=== PATIENT | female | born 1935 | race Caucasian/White ===

== ENCOUNTER 2017-07-24 13:29 | Observation (INO) | payer MEDICARE, BC ==
[~2017-07-24] VITALS: Ht 162.6 cm; Wt 71.3 kg
--- NOTE | ~2017-07-24 | HEMODYNAMI ---
PATIENT:ZAIN MITCHELL MEDICAL RECORD: [id number] : 31 LOCATION:[facility] D.2115 ADMISSION DATE: 07/24/17 Generatedon:07/25/201714:04 Patient name: ZAIN MITCHELL Patient #: [id number] SSN: : 1935 Date of study: 07/25/2017 Page: Of Hemodynamic Procedure Report Patient Data Patient Demographics Procedure consent was obtained First Name: ZAIN Gender: Female Last Name: PAULA : 1935 [facility] Initial: Chito Age: 82 year(s) Patient #: [id number] Race: Unknown Additional ID: [id number] Contact details Address: [place] [address] State: [place] City: [place] Zip code: [address] Past Medical History Allergies Allergen Reaction Date Comments Reported Morphine 07/25/2017 Admission Admission Data Admission Date: 07/24/2017 Admission Time: 17:08 Room #: 2115 Procedure Procedure Types Cath Procedure Diagnostic Procedure C [facility] w/Coronaries Miscellaneous Procedures Moderate Sedation up to 15 minutes Procedure Description Procedure Date Procedure Date: 07/25/2017 Procedure Start Time: 13:47 Procedure End Time: 14:03 Procedure Staff Name Function Jonas Salcedo MD Performing Physician Sol Espinoza RT Monitor Cassie Brady RT Scrub Shahid Segura RN Nurse Procedure Data Cath Procedure Fluoroscopy Diagnostic fluoroscopy Total fluoroscopy Time: 3.2 time: 3.2 min min Diagnostic fluoroscopy Total fluoroscopy dose: 190 dose: 190 mGy mGy Contrast Material Contrast Material Type Amount (ml) Isovue 300 43 Entry Location Entry Primary Successful Side Size Upsize Upsize Entry Closure Succes sful Closure Location (Fr) 1 (Fr) 2 (Fr) Remarks Device Remarks Femoral Right 5 Fr Exoseal artery Estimated blood loss: 5 ml Diagnostic catheters Device Type Used For End Catheter Placement Cordis 5Fr JL 4.0 Left Coronary Catheter (MP) Angiography Cordis 5Fr 3DRC Catheter Right Coronary (MP) Angiography Cordis 5Fr Pigtail LV Angiography Catheter (MP) Procedure Complications No complications Procedure Medications Medication Administration Route Dosage Oxygen NC 2 l/min Lidocaine 2% added to field 20 Heparin Flush Bag added to field 2 bags (1000units/500ml NS) Versed I.V. 0.5 mg Fentanyl I.V. 25 mcg Versed I.V. 0.5 mg Fentanyl I.V. 25 mcg Hemodynamics Rest Heart Rate: 52 (bpm) Snapshots Pre Cath Intra NCS Post Cath Vital Signs Time Heart Resp SPO2 etCO2 NIBP (mmHg) Rhythm Pain Sedation Rate (ipm) (%) (mmHg) Status Level (bpm) 13:40:01 58 17 94 6.7 124/65(100) SB 0 (11) 10(A) , No pain 13:45:21 48 19 93 0 110/56(82) SB 0 (11) 10(A) , No pain 13:50:40 50 18 94 0 113/55(91) SB 0 (11) 9(A) , No pain 13:55:58 48 24 98 1.4 121/57(94) SB 0 (11) 9(A) , No pain 14:01:21 47 18 96 11.1 124/55(94) SB 0 (11) 10(A) , No pain Medications Time Medication Route Dose Verified Delivered Reason Notes Effe ctiveness by by 13:41:21 Oxygen NC 2 Jonas Buffie used for l/min [facility] Ricardo Segura RN procedure 13:41:29 Lidocaine 2% added 20ml Jonas Buffie for local to vial [facility]. Ricardo Segura RN anesthetic field 13:41:37 Heparin Flush added 2 Jonas Buffie used for Bag to bags [facility] Ricardo Segura RN procedure (1000units/500ml field ABDUL NS) 13:45:49 Versed I.V. 0.5 [address] mg [facility] Ricardo Segura RN sedation 13:45:55 Fentanyl I.V. [address] m[address] [facility] Ricardo Segura RN sedation 13:53:04 Versed I.V. 0.5 Jonas [address] for mg [facility] Ricardo Segura RN sedation 13:53:08 Fentanyl I.V. [address] mcg [facility] Ricardo Segura RN sedation Procedure Log Time Note 13:15:39 Shahid Segura RN sent for patient. Start room use. 13:15:40 Time tracking: Regular hours 13:15:44 Plan of Care:Hemodynamics will remain stable., Cardiac rhythm will remain stable., Comfort level will be maintained., Respiratory function will remain adequate., Patient/ family verbilizes understanding of procedure., Procedure tolerated without complication., Recovers from procedure without complications.. 13:30:29 Patient received from PCU to CCL 1 Alert and oriented. Tansferred to table in Supine position. 13:30:31 Warm blankets applied, and luís hugger turned on for patient comfort. 13:30:31 Correct patient and procedure confirmed by team. 13:30:32 Signed procedure consent form obtained from patient. 13:30:34 ECG and BP/O2 sat monitors applied to patient. 13:30:36 Full Disclosure recording started 13:39:07 Vital chart was started 13:39:08 Baseline sample Acquired. 13:39:11 Rhythm: sinus bradycardia 13:39:23 H&P Date Dictated: 07/25/2017 Within 30 days and on chart.. 13:39:25 Pre-procedure instructions explained to patient. 13:39:26 Pre-op teaching completed and patient verbalized understanding. 13:39:27 Family in patients room. 13:39:29 Patient NPO since Midnight. 13:41:21 Oxygen 2 l/min NC was administered by Shahid Segura RN; used for procedure; 13:41:29 Lidocaine 2% 20ml vial added to field was administered by Shahid Segura RN; for local anesthetic; 13:41:30 Patient allergic to Morphine 13:41:33 Is the patient allergic to Iodine/contrast media? No. 13:41:35 Is patient on blood thinner?No 13:41:37 Heparin Flush Bag (1000units/500ml NS) 2 bags added to field was administered by Shahid Segura RN; used for procedure; 13:41:38 Patient diabetic? No. 13:41:42 Previous problem with sedation/anesthesia? No ? 13:41:45 Snore? Yes 13:41:47 Sleep apnea? No 13:41:48 Deviated septum? No 13:41:49 Opens mouth fully? Yes 13:41:49 Sticks out tongue? Yes 13:41:53 Airway obstruction? No ? 13:41:58 Dentures? Yes In 13:42:02 Pre procedure: right dorsailis pedis pulse 2+ Normal; easily identifiable; not easily obliterated 13:42:50 Patient pain scale 0/10 ?. 13:42:58 IV patent on arrival in left antecubital with 0.9% NaCl at [facility]. 13:43:13 Lab results completed and on chart. 13:43:17 Right groin area was prepped with chlora-prep and draped in sterile fashion 13:43:18 Alarms reviewed by R. N. 13:43:19 Sharps counted by scrub and verified by R.N. 13:43:32 Use device set Femoral Dx 13:43:33 Acist Syringe opened to sterile field. 13:43:34 Bag Decanter opened to sterile field. 13:43:34 Medline Cath Pack opened to sterile field. 13:43:35 Terumo 5Fr B[place]well Sheath opened to sterile field. 13:43:35 St Reuben 260cm J .035 wire opened to sterile field. 13:43:36 Acist Hand Control opened to sterile field. 13:43:36 Acist Manifold opened to sterile field. 13:43:36 Diagnostic Infinity 5Fr Multipack catheter opened to sterile field. 13:43:37 Tegaderm 4 x 4 opened to sterile field. 13:44:53 Final Timeout: patient, procedure, and site verified with staff and physician. All members of the team are in agreement. 13:44:55 Right groin site verified by team. 13:44:57 Physical assessment completed. ASA score P 2 - A patient with mild systemic disease as per Jonas Salcedo MD. 13:45:01 Sedation plan: IV Moderate Sedation Medication:Versed, Fentanyl 13:45:49 Versed 0.5 mg I.V. was administered by Shahid Segura RN; for sedation; 13:45:55 Fentanyl 25 mcg I.V. was administered by Shahid Segura RN; for sedation; 13:46:47 Zero performed for pressure channel P1 13:46:54 Zero performed for pressure channel P1 13:46:57 Zero performed for pressure channel P1 13:46:59 Zero performed for pressure channel P1 13:47:04 Zero performed for pressure channel P1 13:47:07 Zero performed for pressure channel P1 13:47:21 Procedure started. 13:47:24 Local anesthetic to right femoral artery with Lidocaine 2% by Jonas Salcedo MD.INITIAL ACCESS ONLY 13:47:33 A 5 Fr sheath was inserted into the Right Femoral artery 13:50:52 PERCUTANEOUS ENTRY 19GA needle opened to sterile field. 13:50:53 PERCUTANEOUS ENTRY 19GA needle opened to sterile field. 13:53:04 Versed 0.5 mg I.V. was administered by Shahid Segura RN; for sedation; 13:53:08 Fentanyl 25 mcg I.V. was administered by Shahid Segura RN; for sedation; 13:55:11 A Cordis 5Fr JL 4.0 Catheter (MP) was advanced over the wire and used for Left Coronary Angiography. 13:55:12 Catheter removed. 13:55:20 A Cordis 5Fr 3DRC Catheter (MP) was advanced over the wire and used for Right Coronary Angiography. 13:55:54 Catheter removed. 13:56:51 A Cordis 5Fr Pigtail Catheter (MP) was advanced over the wire and used for LV Angiography.removed, unable to cross valve. 13:59:49 Sheath removed intact; hemostasis achieved with Exoseal to the Right Femoral artery. 13:59:54 Procedure ended.(Physican Out) 14:00:04 Fluoroscopy time 03.20 minutes. 14:00:08 Fluoroscopy dose: 190 mGy 14:00:08 Flurop Dose total: 190 14:00:12 Contrast amount:Isovue 300 43ml. 14:00:14 Sharps counted by scrub and verified by R.N. 14:00:15 Insertion/operative site no bleeding no hematoma. 14:00:20 Post-op/insertion site Right Femoral artery dressed using a 4 x 4 and Tegaderm. 14:00:23 Post right femoral artery:stable, clean and dry 14:00:25 Post Procedure Pulses reassessed and unchanged 14:00:29 Post-procedure physical assessment completed. ASA score P 2 - A patient with mild systemic disease as per Jonas Salcedo MD. 14:00:34 Post procedure rhythm: unchanged. 14:00:37 Estimated blood loss: 5 ml 14:00:38 Post procedure instruction explained to patient.Patient verbalizes understanding. 14:00:39 Patient needs reinforcement of post procedure teaching. 14:00:50 Procedure type changed to Cath procedure, Diagnostic procedure, LHC, LHC w/Coronaries, Miscellaneous Procedures, Moderate Sedation up to 15 minutes 14:01:12 Procedure Complication : No complications 14:01:14 See physician's report for complete and final results. 14:01:32 Cordis 5Fr Exoseal opened to sterile field. 14:02:07 Procedure and supply charges have been captured, reviewed, submitted and are correct. 14:03:34 Vital chart was stopped 14:03:37 Report given to PCU. 14:03:40 Patient transfered to PCU with Bed. 14:03:51 Procedure ended. 14:03:51 Full Disclosure recording stopped 14:03:54 End room use (Document Last) Device Usage Item Name Manufacture Quantity Catalog Hospital Part Current Minimal Lot# / Number Charge Number Stock Stock Serial# Code Acist Acist 1 [id number] 681325 744145 20 Syringe [employer] Inc Bag Decanter Microtek 1 2002S 289227 34245 277644 5 Medical Inc. Medline Cath Cardinal 1 [id number] 885652 02869 221066 5 Pack Health Terumo 5Fr Terumo 1 [id number] 942667 361615 076964 [address] Reuben 1 230850 377352 283742 730162 30 260cm J .035 wire Acist Hand Acist 1 52203 297874 740452 684971 5 Control Medical [employer] Inc Acist Acist 1 57054 879156 913923 633507 5 Manifold Medical Systems Inc Diagnostic Cardinal 1 [id number] 738942 00019 870711 30 Infinity 5Fr Health Multipack catheter Tegaderm 4 x 3M 1 1626W 828448 298399 278737 5 4 PERCUTANEOUS [facility] 2 [id number] 449622 276144 5 ENTRY 19GA needle Cordis 5Fr Cardinal 1 [id number] 5 JL 4.0 Health Catheter (MP) Cordis 5Fr Cardinal 1 [id number] 5 3DRC Health Catheter (MP) Cordis 5Fr Cardinal 1 735759 5 Pigtail Health Catheter (MP) Cordis 5Fr Cardinal 1 EX500 833272 955893 616157 10 Exoseal Health Signature Audit [facility] Stage Time Signature Unsigned Intra-Procedure 07/25/2017 Sol 2:04:06 PM Counts RT(R) Signatures Monitor : Sol Signature : Counts RT Date : Time : [place] [address] [place] [address]
[~2017-07-24 13:29] MED LIST: BAYER CHEWABLE81 MG PO; BETAGAN 0.5% OPH5 ML EACH EYE; BUMEX 1 MG TAB1 MG PO; DULCOLAX5 MG PO; FLUTICASONE PRO16 GM NASAL; K-DUR20 MEQ PO; LUTEIN20 MG PO; MULTI-DAY VITAM1 TAB PO; NORVASC5 MG PO; PRILOSEC20 MG PO; PROMETHAZINE V180 ML PO; QUALAQUIN324 MG PO; REFRESH TEARS15 ML EACH EYE; TUMS500 MG PO; ULTRAM50 MG PO; ZOFRAN4 MG PO
[2017-07-24 14:13] LABS: ALBUMIN 3.7 g/dL (3.4-5.0); ALKALINE PHOSPHATASE 140 U/L (46-116); ALT (SGPT) 27 U/L (10-68); BILIRUBIN - TOTAL 0.53 mg/dL (0.2-1.3); CALC OSMOLALITY 290 mosm/kg (275-300); CALCIUM 9.4 mg/dL (8.5-10.1); CARBON DIOXIDE 30.9 mmol/L (21.0-32.0); CHLORIDE - SERUM 99 mmol/L (98-107); CREATININE - SERUM 0.9 mg/dL (0.6-1.3); GLUCOSE 95 mg/dL (74-106); PROTEIN - SERUM 8.1 g/dL (6.4-8.2); SODIUM 145 mmol/L (136-145); UREA NITROGEN 19 mg/dL (7-18); eGFR NON AFRICAN AMERICAN 63 mL/min (90-120)
[2017-07-24 14:24] LABS: CKMB 0.4 U/L (0.0-3.6); CREATINE KINASE 35 UL (21-215)
[2017-07-24 14:25] LABS: TROPONIN-I < 0.017 ng/mL (0.000-0.060)
[2017-07-24 14:35] LABS: BASOPHILS 0.1 % (0-2); EOSINOPHILS 3.9 % (0-7); HEMATOCRIT 48.3 % (36.0-48.0); HEMOGLOBIN 16.4 g/dL (12-16); IMMATURE GRANULOCYTES 0.1 % (0-5); LYMPHOCYTES 26.3 % (15-50); MCH 32.1 pg (26.0-34.0); MCV 94.5 fL (80.0-100.0); MEAN PLATELET VOLUME 10.4 fL (7.4-10.4); MONOCYTES 11.3 % (2-11); NEUTROPHILS 58.3 % (40-80); RBC 5.11 10x6/uL (4.00-5.40); RDW 12.5 % (11.5-14.5); WBC 6.9 10x3/uL (4.8-10.8)
[2017-07-24 14:45] LABS: PLATELET COUNT 223 10x3/uL (130-400)
[2017-07-24 16:37] LABS: CHOL - HDL RATIO 3.4 ratio (2.3-4.1); LDL-HDL RATIO 1.8 ratio (1.5-3.5)
[2017-07-24 19:52] LABS: CKMB 0.4 U/L (0.0-3.6); CREATINE KINASE 26 UL (21-215); TROPONIN-I < 0.017 ng/mL (0.000-0.060)
[2017-07-24 20:00] VITALS: BP 140/43
--- NOTE | 2017-07-24 20:44 | NUR ---
PT ARRIVED VIA STRETCHER FROM ER WITH DX HTN, CP. PT HAS C/O MILD IGNACIO. NO DISTRESS NOTED. SR PER CM. FAMILY AT BEDSIDE. SR UP X2, CALL LIGHT WITHIN REACH.
[2017-07-24] MEDS ORDERED: OMEPRAZOLE20 M1 PO (20:56)
[2017-07-24 22:07] VITALS: BP 140/93; Ht 162.6 cm; Wt 71.3 kg
[2017-07-25] VITALS: BP 126/62
--- NOTE | 2017-07-25 00:49 | NUR ---
PT ARRIVED VIA STRETCHER FROM ER AT 2035 HRS. PT DENEIED ANY DISCOMFORT. ADMISSION ASSESSMENT, HISTORY AND HOME MED LIST COMPLETED. IV TO LAC SL. O2 2LNC. SR PER CM HR 79. PM MEDS GIVEN PER ORDERS. 2400 EKG DONE. ASSISTED PT TO BR AT THAT TIME. PT VERY UNSTEADY ON FEET. ASSISTED BACK TO BED. WILL CONTINUE TO MONITOR. SR UP X2, CALL LIGHT WITHIN REACH, BED ALARM ON AND FRIEND AT BEDSIDE.
[2017-07-25 01:42] LABS: CKMB 0.3 U/L (0.0-3.6); CREATINE KINASE 22 UL (21-215)
[2017-07-25 01:48] LABS: TROPONIN-I < 0.017 ng/mL (0.000-0.060)
--- NOTE | 2017-07-25 02:43 | NUR ---
PT RESTING WITH EYES CLOSED. RESP EVEN AND REGULAR. SR UP X2, CALL LIGHT WITHIN REACH.
[2017-07-25 04:00] VITALS: BP 115/53; BP 126/90
--- NOTE | 2017-07-25 04:38 | NUR ---
PT RESTING WITH EYES CLOSED. RESP EVEN AND REGULAR. SR UP X2, CALL LIGHT WITHIN REACH AND BED ALARM ON.
--- NOTE | 2017-07-25 06:27 | NUR ---
VSS THROUGHOUT NIGHT. SR PER CM. PT DENIED ANY DISCOMFORT. NEEDS MET; WILL CONTINUE TO MONITOR.
--- NOTE | 2017-07-25 07:30 | NUR ---
RECEIVED PT IN BED AAOX4 RESP UNLABORED SKIN W/D COLOR WNL PT C/O IGNACIO SINCE SHE GOT UP YESTERDAY MORNING 12/15 DENIES ANY NEEDS AT THIS TIME
[2017-07-25 07:48] LABS: CKMB 0.3 U/L (0.0-3.6); CREATINE KINASE 21 UL (21-215)
[2017-07-25 07:49] LABS: TROPONIN-I < 0.017 ng/mL (0.000-0.060)
[2017-07-25 08:00] VITALS: BP 138/55
--- NOTE | 2017-07-25 09:00 | HP ---
PATIENT: ZAIN MITCHELL MEDICAL RECORD: [id number] ACCOUNT: [id number] LOCATION:[address] : 31 ADMISSION DATE: 07/24/17 HISTORY AND PHYSICAL EXAMINATION DATE OF ADMISSION: 07/24/2017 CHIEF COMPLAINT: Chest pain. HISTORY OF PRESENT ILLNESS: This is an 82-year-old white female who started complaining of headache, dizziness this morning and has been complaining of a "real heavy" pain in her chest going into her left arm. She felt nauseated. She sees Dr. Palacios but does not have a history of heart disease. She does have a history of hypertension, multiple falls, and arthritis. She was brought to the Emergency Department where her cardiac enzymes were normal. CBC was normal. D-dimer a little elevated at 1.04. Rest of the lab work okay. She is admitted for further evaluation of her chest pain. PAST MEDICAL HISTORY: Hypertension, arthritis, frequent falls. PAST SURGICAL HISTORY: Hysterectomy, knee surgery, and cataract repair. ALLERGIES: TO MORPHINE. HOME MEDICATIONS: Amlodipine 5 mg a day, aspirin 81 mg a day, multivitamin once a day, Prilosec 20 mg a day. She takes HCTZ 12.5 as needed for edema. HABITS: Never smoked. No alcohol or drugs. SOCIAL HISTORY: She is , lives in [place] and retired from a [employer] factory. FAMILY HISTORY: Father with a history of cancer. Sister with a history of colon cancer. Mother of uncertain causes. REVIEW OF SYSTEMS: GENERAL: No major weight changes. HEAD, EYES, EARS, NOSE, AND THROAT: No particular sinus or allergy problems. RESPIRATORY: No emphysema, allergies or pneumonia. CARDIAC: No history of chest pain or palpitations, but she does see Dr. Palacios. GASTROINTESTINAL: Has some heartburn. GENITOURINARY: No significant problems there. MUSCULOSKELETAL: Osteoarthritis and frequent falls. NEUROLOGIC: No migraines. No seizures. PSYCHIATRIC: Denies depression or melancholia. PHYSICAL EXAMINATION: VITAL SIGNS: Temperature 97.7, pulse 66, respirations 18, blood pressure 140/43, O2 sat 99%. GENERAL: She does not appear to be in acute distress. She is awake and alert. HEAD, EYES, EARS, NOSE, AND THROAT: Grossly within normal limits. NECK: Supple. No JVD or bruit. HEART: Regular rate and rhythm without murmur. LUNGS: Clear. ABDOMEN: Soft, flat, nontender. HISTORY AND PHYSICAL [id number] ZAIN MITCHELL EXTREMITIES: No edema. LABORATORY DATA: CBC with a white count 6900, hemoglobin 16.4, hematocrit 48.3. Basic Metabolic Panel: Sodium 145, potassium 4.0, chloride 99, CO2 30.9, BUN 19, creatinine 0.9, glucose 95, calcium 9.4. Liver functions are okay. Total cholesterol 212, HDL 63, LDL 112, triglycerides 185. EKG shows no acute signs of cardiac injury. ASSESSMENT: 1. Chest pain. 2. Hypertension. PLAN: We will admit for serial cardiac enzymes. Cardiology has been consulted. Other tests and procedures as warranted. TRANSINT:[id number] Voice Confirmation ID: [id number] DOCUMENT ID: [id number] PATTIE STINSON MD at 0900 CC: [id number] DICTATION DATE: 07/25/178 FLORIST DESIGNER: 07/25/17 0239 ADM IN [place] [id number] [place] [id number]
[2017-07-25 09:39] LABS: BASOPHILS 0.1 % (0-2); EOSINOPHILS 3.6 % (0-7); HEMATOCRIT 42.3 % (36.0-48.0); HEMOGLOBIN 14.1 g/dL (12-16); IMMATURE GRANULOCYTES 0.1 % (0-5); LYMPHOCYTES 23.6 % (15-50); MCH 31.9 pg (26.0-34.0); MCHC 33.3 g/dL (31.0-37.0); MCV 95.7 fL (80.0-100.0); MEAN PLATELET VOLUME 10.7 fL (7.4-10.4); MONOCYTES 10.4 % (2-11); NEUTROPHILS 62.2 % (40-80); PLATELET COUNT 206 10x3/uL (130-400); RBC 4.42 10x6/uL (4.00-5.40); RDW 12.9 % (11.5-14.5); WBC 6.7 10x3/uL (4.8-10.8)
[2017-07-25 09:42] LABS: ANION GAP 12.5 mmol/L (8-16); CARBON DIOXIDE 29.9 mmol/L (21.0-32.0); CREATININE - SERUM 0.8 mg/dL (0.6-1.3); POTASSIUM - SERUM 4.4 mmol/L (3.5-5.1)
[2017-07-25 12:00] VITALS: BP 95/37
[2017-07-25 16:00] VITALS: BP 121/50
[2017-07-25 20:00] VITALS: BP 112/47
--- NOTE | 2017-07-25 20:24 | NUR ---
INITIAL ROUNDS COMPELTED AT 1914 HRS. PT DENIED ANY DISCOMFORT. ASSESSMENT COMPLETED AT 1954 HRS. SB PER CM HR 45. IV TO LAC SL. R GROIN CLEAN, DRY AND INTACT. PALPABLE PEDAL PULSES. LUNGS CTA. FRIEND AT BEDSIDE. S RUP X2, CALL LIGHT WITHIN REACH AND BED ALARM ON.
--- NOTE | 2017-07-25 21:43 | NUR ---
MARC AND LIONEL HELD BP 112/47 HR 48. WILL CONTINUE TO MONITOR.
--- NOTE | 2017-07-26 00:17 | NUR ---
PT RESTING WITH EYES CLOSED. RESP EVEN AND REGULAR. SR UP X2, CALL LIGHT WITHIN REACH.
[2017-07-26 01:15] VITALS: BP 139/65
--- NOTE | 2017-07-26 01:58 | NUR ---
PT RESTING WITH EYES CLOSED. RESP EVEN AND REGULAR. SR UP X2,CALL LIGHT WITHIN REACH.
--- NOTE | 2017-07-26 04:40 | NUR ---
ASSISTED PT TO BR. VOIDED MODERATE AMOUNT OF YELLOW URINE. ASSITED BACK TO BED. GAIT UNSTEADY AT TIMES. BED ALARM ON. CM DENOTES SB MAININLY IN MID TO LOW 40'S WITH OCC JUNCTIONAL BEATS. PT ASYMPTOMATIC. WILL CONTINUE TO MONITOR.
[2017-07-26 05:19] VITALS: BP 138/56
--- NOTE | 2017-07-26 06:25 | NUR ---
HR 62 SR AT THIS TIME. ASSISTED TO BR. VOIDED MODERATE AMOUNT OF URINE. ASSISTED BACK TO BED. PT DENIED ANY DIZZINESS AT THAT TIME. PT SLEPT WELL DURING NIGHT. NO CHANGES TO R GROIN. NEEDS MET; WILL CONTINUE TO MONITOR.
--- NOTE | 2017-07-26 07:30 | NUR ---
RECEIVED PT IN BED AAOX4 RESP UNLABORED DENIES ANY NEEDS OR DISCOMFORT NAD NOTED
[2017-07-26 07:51] VITALS: BP 127/50
--- NOTE | 2017-07-26 09:48 | NUR ---
REVIEWED DISCHARGE INSTRUCTIONS WITH PT STATES UNDERSTANDING COPY GIVEN SALINE LOCK TO LAC DCD WITH IV CATHETER INTACT SITE FREE OF REDNESS OR EDEMA PT DISCHARGED HOME LEFT UNIT VIA W/C IN STABLE CONDITION WITH ALL PERSONAL BELONGINGS
--- NOTE | 2017-07-26 11:39 | HP ---
PATIENT: ZAIN MITCHELL MEDICAL RECORD: [id number] ACCOUNT: [id number] LOCATION:[address] : 31 ADMISSION DATE: 07/24/17 HISTORY AND PHYSICAL EXAMINATION HISTORY OF PRESENT ILLNESS: An 82-year-old female with no known history of coronary artery disease; longstanding history of hypertension, difficult to control as of late; admitted with chest pain and pressure. Somewhat dramatic on presentation with the family and patient. Has a history of chronic headaches. Blood pressure was elevated at that time. Cardiac enzymes are negative. ECG shows left axis, nonspecific ST-T changes. We were consulted for further cardiac evaluation. PAST MEDICAL HISTORY: Includes; 1. History of intracranial bleed, status post will hole. 2. Hypertension. 3. Gastroesophageal reflux disease. ALLERGIES: MORPHINE. MEDICATIONS: Include Prilosec 20 mg p.o. every day, aspirin 81 every day, amlodipine 5 every day. SOCIAL HISTORY: Currently lives by herself, some assistance from family. Gets around with a walker, but is able to keep the house clean. Nonsmoker. REVIEW OF SYSTEMS: The patient reports easy bruising but reports no swollen glands. The patient reports no fever, no night sweats, no significant weight gain, no significant weight loss. No significant exercise tolerance. The patient reports no dry eyes, no irritation, no vision change. Patient reports no difficulty hearing and no ear pain. Patient reports no frequent nose bleeds or nose and sinus problems. Patient reports on arm pain on exertion. No shortness of breath while lying down. No history of heart murmur. Patient reports no cough, no wheezing or coughing up blood. Patient reports no abdominal pain, no vomiting. Normal appetite. No diarrhea and not vomiting blood. No nausea and no constipation. Patient reports no incontinence. No difficulty urinating. No hematuria. No increased frequency. Patient reports no muscle aches. No weakness, no arthralgias, no back pain. No swelling of the extremities. Patient reports no abnormal mole, no jaundice, no rashes. Reports no loss of consciousness. No weakness and no numbness. No seizures, dizziness, or headaches. The patient reports no depression, no sleep disturbance, feeling safe in a relationship and no alcohol abuse. Patient reports on fatigue. Reports no runny nose or sinus pressure. No itching, no hives, and no frequent sneezing. PHYSICAL EXAMINATION: GENERAL: Elderly female, in no acute distress. VITAL SIGNS: Blood pressure 135/55, pulse 59 and regular. HEENT: Normocephalic, atraumatic. NECK: No bruits noted. HEART: Regular. S4 gallop is noted. A II/ systolic ejection murmur. LUNGS: Good air excursion. ABDOMEN: Soft, nontender. EXTREMITIES: Pulses 2+ with no edema. HISTORY AND PHYSICAL [id number] ZAIN MITCHELL DIAGNOSTIC DATA: ECG shows left axis, nonspecific ST-T changes. IMPRESSION: Acute coronary syndrome. This might be a simple strain. She does have left ventricular hypertrophy on ECG, however, given her symptomatology, suspect occult coronary disease as well. Intervention based on the above. TRANSINT:[id number] Voice Confirmation ID: [id number] DOCUMENT ID: [id number] CLEMENTINA HANNAH MD at 1139 CC: [id number] DICTATION DATE: 07/25/17918 NURSES AIDE: 07/25/17 1015 DIS IN 07/26/17 [place] [id number] [place] [address]
--- NOTE | 2017-07-26 11:39 | OP ---
PATIENT NAME: ZAIN MITCHELL MEDICAL RECORD: [id number] :31 LOCATION:[address].2115 ADMISSION DATE:07/24/17 SURGEON: CLEMENTINA HANNAH MD DATE OF OPERATION: 07/25/2017 PROCEDURE: Left heart catheterization, selective coronary angiography, right femoral approach. CATHETERS: A 5-Mohawk sheath, 5/4 left and right Ricky. The procedure was well tolerated. The patient returned to the desai, sheath removed. ExoSeal device placed. FINDINGS: Left ventriculography, 30-degree ACUNA view, not performed. CORONARY ANATOMY: LEFT MAIN: Left main is free of disease. LAD: Free of disease in the diagonal system. CIRCUMFLEX: Free of disease. RIGHT CORONARY ARTERY: No flow obstructive disease. IMPRESSION: Minimal atherosclerotic disease, chest pain secondary to hypertension. TRANSINT:[id number] Voice Confirmation ID: [id number] DOCUMENT ID: [id number] CLEMENTINA HANNAH MD at 1139 CC: [id number] DICTATION DATE: 07/25/17 1408 MEDICAL RECORDS DIRECTOR: 07/25/17 1740 DIS IN 07/26/17 [place] [place] [address]
--- NOTE | 2017-07-26 13:44 | NUR ---
PATIENT DISCHARGED Thursday07/25/17. THE NURSE REPORTS SHE DID NOT LEAVE LAST PM SERENITY WAS CONCERNED ABOUT LATE DISCHARGE. REPORTEDLY PRIMARY MD WAS NOTIFIED.
== END 2017-07-26 09:52 | disposition home or self-care (01) ==
LOC: D.ER 13:29 → D.M2 17:08 → OBSVTIME 17:08 → D.M2 07-26 09:52
PROVIDERS: Emergency Medicine; Internal Medicine Interventional Cardiology; ADMIT Family Medicine
DX: I10 Essential (primary) hypertension (principal); K21.9 Gastro-esophageal reflux disease without esophagitis